=== PATIENT | male | born 1960 | race Caucasian/White ===

== ENCOUNTER 2020-12-14 01:56 | Inpatient (IN) | payer OTHER ==
[~2020-12-14] VITALS: Ht 172.7 cm; Wt 72.4 kg
[2020-12-14] MEDS ORDERED: METHYLPREDNISOLONE SOD SUCC 125 MG/2 ML VIAL IV STA (02:03)
[2020-12-14] MEDS ORDERED: ONDANSETRON HCL 4MG/2ML INJ IV STA (02:03)
[2020-12-14] MEDS ORDERED: IPRATROPIUM BROMIDE (0.02%) 0.5MG/2.5ML NEB HHN STA (02:03)
[2020-12-14 02:14] LABS: BG BASE EXCESS -13.3 mmol/L (-2.0-2.0); BG CARBOXYHEMOGLOBIN 1.1 % (0.5-1.5); BG DEOXYHEMOGLOBIN 10.8 % (0.0-5.0); BG FRACTION INSPIRED OXYGEN 40; BG HCO3 ACT 18.3 mmol/L (22.0-26.0); BG METHEMOGLOBIN 0.2 % (0.0-1.5); BG OXYGEN SATURATION 89.1 % (92.0-98.5); BG OXYHEMOGLOBIN 87.9 % (94.0-97.0); BG PCO2 69.9 mmHg (35.0-45.0); BG PH 7.036 (7.350-7.450); BG PO2 76.7 mmHg (75.0-100.0); BG SAMPLE SITE LEFT BRACHIAL; BG VENT MODE MASK - BIPAP
[2020-12-14] MEDS ORDERED: MAGNESIUM 2 G PREMIX 50 ML IV ONE (02:15)
[2020-12-14] MEDS ORDERED: SODIUM CHLORIDE 0.9% 1,000 ML IV ONE (02:15)
[2020-12-14] MEDS: ALBUTEROL (0.083%) 2.5MG/3ML NEB HHN SCH ×3 (02:20→03:26)
[2020-12-14 02:33] LABS: BASOPHILS % 1.1 % (0.0-2.0); EOSINOPHILS % 2.6 % (0.0-5.0); HEMATOCRIT. 40.4 % (42.0-52.0); HEMOGLOBIN. 13.3 g/dL (14.0-18.0); LYMPHOCYTES % 43.9 % (20.0-50.0); MEAN CORPUSCULAR HEMOGLOBIN 32.8 pg (28.0-32.0); MEAN CORPUSCULAR VOLUME 99.2 fL (80.0-94.0); MONOCYTES % 7.1 % (2.0-8.0); NEUTROPHILS % 45.3 % (40.0-76.0); PLATELET 299 x1000/uL (130-400); RED BLOOD CELL COUNT 4.07 mill/uL (4.7-6.1); RED CELL DISTRIBUTION WIDTH 14.8 % (11.6-14.6)
[2020-12-14 02:35] LABS: CHLORIDE 107 mEq/L (98-107)
[2020-12-14] MEDS ORDERED: CEFTRIAXONE 1 G PREMIX 50 ML IV ONE (02:45)
[2020-12-14] MEDS ORDERED: FUROSEMIDE 20MG/2ML VIAL IVP ONE (02:45)
[2020-12-14] MEDS ORDERED: AZITHROMYCIN 500 MG in DEXT 5% WATER 250 ML IV ONE (02:45)
[2020-12-14] MEDS ORDERED: NITROGLYCERIN 50MG PREMIX 250 ML IV ONE (03:30)
[2020-12-14] MEDS ORDERED: IPRATROPIUM/ALBUTEROL 0.5-3(2.5)MG/3ML NEB HHN PRN (06:30)
[2020-12-14] MEDS ORDERED: CLONIDINE 0.1MG TABLET PO PRN (06:30)
[2020-12-14] MEDS ORDERED: ONDANSETRON HCL 4MG/2ML INJ IV PRN (06:30)
[2020-12-14] MEDS ORDERED: GUAIFENESIN 200MG/10ML SUGAR FREE UDC PO PRN (06:30)
[2020-12-14] MEDS ORDERED: ACETAMINOPHEN 325MG TABLET PO PRN (06:30)
[2020-12-14] MEDS: AMLODIPINE 10MG TABLET PO SCH (08:30)
[2020-12-14] MEDS: ENOXAPARIN 40MG/0.4ML SYR SUBCUT SCH (08:30)
[2020-12-14] MEDS ORDERED: IOHEXOL-350 100 ML BOTTLE ONE (09:23)
[2020-12-14] MEDS: THIAMINE HCL 100MG TABLET PO SCH (09:34)
[2020-12-14] MEDS: MULTIVITAMINS,THER W-MINERALS TABLET PO SCH (10:15)
[2020-12-14] MEDS: NICOTINE 21MG PATCH TD SCH (10:15)
[2020-12-14] MEDS: FOLIC ACID 1MG TABLET PO SCH (10:16)
[2020-12-14 13:00] VITALS: BP 106/62
[2020-12-14] MEDS: METHYLPREDNISOLONE SOD SUCC 40 MG/ML VIAL IV SCH ×2 (14:20→21:43)
[2020-12-14 19:50] LABS: CREATINE KINASE MB FRACTION 2.5 ng/mL (0.5-3.6)
[2020-12-14 20:00] VITALS: BP 107/70
[2020-12-14 23:21] VITALS: BP 92/62
[2020-12-14 23:25] VITALS: BP 92/62
[2020-12-14 23:31] LABS: CREATINE KINASE MB FRACTION 2.3 ng/mL (0.5-3.6)
[2020-12-15] VITALS: BP 98/56
[2020-12-15 03:45] LABS: CLARITY URINE CLEAR (CLEAR); COLOR URINE YELLOW (YELLOW); KETONES URINE 1+ (NEGATIVE); LEUKOCYTE ESTERASE URINE NEGATIVE (NEGATIVE); NITRITE URINE NEGATIVE (NEGATIVE); OCCULT BLOOD URINE NEGATIVE (NEGATIVE); PROTEIN URINE NEGATIVE (NEGATIVE); SPECIFIC GRAVITY URINE 1.039 (1.005-1.030)
[2020-12-15 03:55] LABS: *AMPHETAMINES SCREEN URINE NEGATIVE (NEGATIVE); *BARBITURATES SCREEN URINE NEGATIVE (NEGATIVE); *BENZODIAZEPINES SCREEN URINE NEGATIVE (NEGATIVE); *COCAINE SCREEN URINE PRESUMTIVE POSITIVE (NEGATIVE); METHADONE URINE SCREEN NEGATIVE (NEGATIVE); OPIATES URINE SCREEN NEGATIVE (NEGATIVE); PHENCYCLIDINE URINE SCREEN NEGATIVE (NEGATIVE)
[2020-12-15 03:56] LABS: CANNABINOID URINE SCREEN PRESUMTIVE POSITIVE (NEGATIVE)
[2020-12-15 04:00] VITALS: BP 93/62
[2020-12-15] MEDS: CEFTRIAXONE 1,000 MG in DEXTROSE 5% WATER 50 ML IV SCH (05:06)
[2020-12-15] MEDS: METHYLPREDNISOLONE SOD SUCC 40 MG/ML VIAL IV SCH ×2 (05:48→18:42)
[2020-12-15] MEDS: AZITHROMYCIN 500 MG in DEXT 5% WATER 250 ML IV SCH (05:49)
[2020-12-15] MEDS ORDERED: CEFTRIAXONE 1 G PREMIX 50 ML IV SCH (06:00)
[2020-12-15] MEDS ORDERED: AZITHROMYCIN 500 MG in DEXT 5% WATER 250 ML IV SCH (06:30)
[2020-12-15 07:08] LABS: HEMATOCRIT. 33.8 % (42.0-52.0); HEMOGLOBIN. 11.3 g/dL (14.0-18.0); MEAN CORPUSCULAR HEMOGLOBIN 32.5 pg (28.0-32.0); MEAN CORPUSCULAR VOLUME 96.8 fL (80.0-94.0); MEAN PLATELET VOLUME 9.6 fl (7.4-10.4); PLATELET 267 x1000/uL (130-400); RED BLOOD CELL COUNT 3.49 mill/uL (4.7-6.1); RED CELL DISTRIBUTION WIDTH 14.3 % (11.6-14.6)
[2020-12-15 07:55] LABS: CHLORIDE 108 mEq/L (98-107)
[2020-12-15 08:00] VITALS: BP 95/56
[2020-12-15 08:04] LABS: LDL CHOLESTEROL 93 mg/dL (5-100)
[2020-12-15 08:05] LABS: HDL CHOLESTEROL 60 mg/dL (40-59)
[2020-12-15] MEDS: AMLODIPINE 10MG TABLET PO SCH (09:00)
[2020-12-15] MEDS: FOLIC ACID 1MG TABLET PO SCH (10:19)
[2020-12-15] MEDS: MULTIVITAMINS,THER W-MINERALS TABLET PO SCH (10:19)
[2020-12-15] MEDS: THIAMINE HCL 100MG TABLET PO SCH (10:19)
[2020-12-15] MEDS: NICOTINE 21MG PATCH TD SCH (10:20)
[2020-12-15] MEDS: ENOXAPARIN 40MG/0.4ML SYR SUBCUT SCH (10:20)
[2020-12-15 11:56] LABS: PLATELET ESTIMATE NORMAL
[2020-12-15 12:00] VITALS: BP 98/54
[2020-12-15 16:00] VITALS: BP 96/55
[2020-12-15] MEDS: LORAZEPAM 2MG/ML CPJ IV PRN (19:57)
[2020-12-15 20:00] VITALS: BP 173/117
[2020-12-15] MEDS: IPRATROPIUM/ALBUTEROL 0.5-3(2.5)MG/3ML NEB HHN SCH (20:06)
[2020-12-15 20:33] LABS: BG BASE EXCESS -3.8 mmol/L (-2.0-2.0); BG CARBOXYHEMOGLOBIN 0.4 % (0.5-1.5); BG DEOXYHEMOGLOBIN 8.9 % (0.0-5.0); BG FRACTION INSPIRED OXYGEN 100; BG HCO3 ACT 24.1 mmol/L (22.0-26.0); BG METHEMOGLOBIN 0.2 % (0.0-1.5); BG OXYHEMOGLOBIN 90.5 % (94.0-97.0); BG PCO2 54.9 mmHg (35.0-45.0); BG PO2 69.2 mmHg (75.0-100.0); BG SAMPLE SITE LEFT RADIAL; BG TOTAL HEMOGLOBIN 15.1 g/dL (12.0-18.0); BG VENT MODE MASK - NRB
[2020-12-16] VITALS (9 sets, daily range): BP systolic 85–112; BP diastolic 50–72
[2020-12-16] MEDS: IPRATROPIUM/ALBUTEROL 0.5-3(2.5)MG/3ML NEB HHN SCH ×4 (00:47→21:10)
[2020-12-16] MEDS: METHYLPREDNISOLONE SOD SUCC 40 MG/ML VIAL IV SCH (05:23)
[2020-12-16] MEDS: AZITHROMYCIN 500 MG in DEXT 5% WATER 250 ML IV SCH (05:24)
[2020-12-16] MEDS: CEFTRIAXONE 1,000 MG in DEXTROSE 5% WATER 50 ML IV SCH (05:24)
[2020-12-16] MEDS: THIAMINE HCL 100MG TABLET PO SCH (08:25)
[2020-12-16] MEDS: MULTIVITAMINS,THER W-MINERALS TABLET PO SCH (08:25)
[2020-12-16] MEDS: FOLIC ACID 1MG TABLET PO SCH (08:25)
[2020-12-16] MEDS: NICOTINE 21MG PATCH TD SCH (08:26)
[2020-12-16] MEDS: AMLODIPINE 10MG TABLET PO SCH (08:26)
[2020-12-16] MEDS: ENOXAPARIN 40MG/0.4ML SYR SUBCUT SCH (08:26)
[2020-12-16] MEDS: BUDESONIDE 0.5MG/2ML NEB HHN SCH (21:11)
[2020-12-16] MEDS: ZOLPIDEM TARTRATE 5MG TABLET PO PRN (23:57)
[2020-12-17] VITALS (56 sets, daily range): BP systolic 88–161; BP diastolic 48–104
[2020-12-17] MEDS: IPRATROPIUM/ALBUTEROL 0.5-3(2.5)MG/3ML NEB HHN SCH ×4 (02:06→20:43)
[2020-12-17] MEDS: CEFTRIAXONE 1,000 MG in DEXTROSE 5% WATER 50 ML IV SCH (04:53)
[2020-12-17] MEDS: AZITHROMYCIN 500 MG in DEXT 5% WATER 250 ML IV SCH (05:52)
[2020-12-17 07:28] LABS: BASOPHILS % 0.1 % (0.0-2.0); EOSINOPHILS % 0.4 % (0.0-5.0); HEMATOCRIT. 33.6 % (42.0-52.0); HEMOGLOBIN. 11.2 g/dL (14.0-18.0); LYMPHOCYTES % 15.1 % (20.0-50.0); MEAN CORPUSCULAR HEMOGLOBIN 32.7 pg (28.0-32.0); MEAN CORPUSCULAR VOLUME 97.9 fL (80.0-94.0); MEAN PLATELET VOLUME 9.6 fl (7.4-10.4); MONOCYTES % 7.3 % (2.0-8.0); NEUTROPHILS % 77.1 % (40.0-76.0); PLATELET 248 x1000/uL (130-400); RED BLOOD CELL COUNT 3.43 mill/uL (4.7-6.1); RED CELL DISTRIBUTION WIDTH 14.8 % (11.6-14.6)
[2020-12-17] MEDS: LORAZEPAM 2MG/ML CPJ IV PRN ×2 (07:28→18:46)
[2020-12-17 07:30] LABS: CHLORIDE 107 mEq/L (98-107)
[2020-12-17] MEDS: BUDESONIDE 0.5MG/2ML NEB HHN SCH ×2 (07:30→20:43)
[2020-12-17] MEDS ORDERED: METHYLPREDNISOLONE SOD SUCC 125 MG/2 ML VIAL IV ONE (07:45)
[2020-12-17] MEDS ORDERED: METHYLPREDNISOLONE SOD SUCC 40 MG/ML VIAL ONE (07:53)
[2020-12-17] MEDS ORDERED: METOPROLOL TARTRATE 5MG/5ML VIAL IV SCH (08:30)
[2020-12-17 08:54] LABS: BG BASE EXCESS -1.5 mmol/L (-2.0-2.0); BG CARBOXYHEMOGLOBIN 0.5 % (0.5-1.5); BG DEOXYHEMOGLOBIN 4.8 % (0.0-5.0); BG METHEMOGLOBIN 0.3 % (0.0-1.5); BG OXYGEN SATURATION 95.2 % (92.0-98.5); BG OXYHEMOGLOBIN 94.4 % (94.0-97.0); BG PCO2 68.7 mmHg (35.0-45.0); BG PH 7.228 (7.350-7.450); BG PO2 88.3 mmHg (75.0-100.0); BG SAMPLE SITE RIGHT RADIAL; BG TOTAL HEMOGLOBIN 15.1 g/dL (12.0-18.0); BG VENT MODE MASK - BIPAP
[2020-12-17] MEDS: AMLODIPINE 10MG TABLET PO SCH (09:00)
[2020-12-17] MEDS: THIAMINE HCL 100MG TABLET PO SCH (09:00)
[2020-12-17] MEDS ORDERED: PREDNISONE 20MG TABLET PO SCH (09:00)
[2020-12-17] MEDS ORDERED: FUROSEMIDE 40MG/4ML VIAL IVP SCH (09:00)
[2020-12-17] MEDS: MULTIVITAMINS,THER W-MINERALS TABLET PO SCH (09:00)
[2020-12-17] MEDS ORDERED: NICARDIPINE 50 MG in SODIUM CHLORIDE 0.9% 230 ML IV PRN (09:00)
[2020-12-17] MEDS: FOLIC ACID 1MG TABLET PO SCH (09:00)
[2020-12-17] MEDS ORDERED: LIDOCAINE HCL 1% 20ML VIAL (Pyxis) INJ ONE (09:44)
[2020-12-17] MEDS ORDERED: DEXT 5%/0.45% NACL 1000ML 1,000 ML IV SCH (10:15)
[2020-12-17] MEDS: ENOXAPARIN 40MG/0.4ML SYR SUBCUT SCH (10:26)
[2020-12-17] MEDS: NICOTINE 21MG PATCH TD SCH (10:27)
[2020-12-17 11:02] LABS: T4 FREE 0.97 ng/dL (0.76-1.46)
[2020-12-17] MEDS ORDERED: HYDRALAZINE 20MG/ML VIAL IV SCH (12:00)
[2020-12-17] MEDS: SILDENAFIL CITRATE 20MG TABLET PO SCH ×2 (14:42→21:01)
[2020-12-17] MEDS: METHYLPREDNISOLONE SOD SUCC 40 MG/ML VIAL IV SCH ×2 (14:42→21:01)
[2020-12-17] MEDS: LACTULOSE 20G/30ML UDC PO PRN (16:12)
[2020-12-17] MEDS ORDERED: NOREPINEPHRINE 8 MG in DEXT 5% WATER 242 ML IV PRN (17:15)
[2020-12-18] VITALS (64 sets, daily range): BP systolic 94–133; BP diastolic 52–93
[2020-12-18] MEDS: IPRATROPIUM/ALBUTEROL 0.5-3(2.5)MG/3ML NEB HHN SCH ×4 (02:08→20:52)
[2020-12-18] MEDS: SILDENAFIL CITRATE 20MG TABLET PO SCH ×3 (05:22→21:35)
[2020-12-18] MEDS: METHYLPREDNISOLONE SOD SUCC 40 MG/ML VIAL IV SCH ×3 (05:22→21:34)
[2020-12-18] MEDS: CEFTRIAXONE 1,000 MG in DEXTROSE 5% WATER 50 ML IV SCH (05:22)
[2020-12-18 05:38] LABS: HEMATOCRIT. 35.8 % (42.0-52.0); HEMOGLOBIN. 11.8 g/dL (14.0-18.0); MEAN CORPUSCULAR HEMOGLOBIN 32.1 pg (28.0-32.0); MEAN PLATELET VOLUME 9.6 fl (7.4-10.4); PLATELET 277 x1000/uL (130-400); RED BLOOD CELL COUNT 3.69 mill/uL (4.7-6.1); RED CELL DISTRIBUTION WIDTH 14.5 % (11.6-14.6)
[2020-12-18 05:44] LABS: CHLORIDE 105 mEq/L (98-107)
[2020-12-18] MEDS: AZITHROMYCIN 500 MG in DEXT 5% WATER 250 ML IV SCH (06:38)
[2020-12-18] MEDS: BUDESONIDE 0.5MG/2ML NEB HHN SCH (07:53)
[2020-12-18] MEDS: ENOXAPARIN 40MG/0.4ML SYR SUBCUT SCH (08:00)
[2020-12-18] MEDS: NICOTINE 21MG PATCH TD SCH (08:00)
[2020-12-18] MEDS: FOLIC ACID 1MG TABLET PO SCH (08:01)
[2020-12-18] MEDS: AMLODIPINE 10MG TABLET PO SCH (08:01)
[2020-12-18] MEDS: MULTIVITAMINS,THER W-MINERALS TABLET PO SCH (08:01)
[2020-12-18] MEDS: THIAMINE HCL 100MG TABLET PO SCH (08:01)
[2020-12-18 10:02] LABS: PLATELET ESTIMATE NORMAL
[2020-12-18] MEDS: LORAZEPAM 2MG/ML CPJ IV PRN ×2 (14:07→18:37)
[2020-12-18] MEDS: LACTULOSE 20G/30ML UDC PO PRN (15:58)
[2020-12-19] VITALS (31 sets, daily range): BP systolic 92–147; BP diastolic 50–80
[2020-12-19] MEDS: LORAZEPAM 2MG/ML CPJ IV PRN (03:02)
[2020-12-19] MEDS: IPRATROPIUM/ALBUTEROL 0.5-3(2.5)MG/3ML NEB HHN SCH ×4 (03:11→21:50)
[2020-12-19] MEDS: BUDESONIDE 0.5MG/2ML NEB HHN SCH ×2 (03:11→09:42)
[2020-12-19 05:43] LABS: HEMATOCRIT. 34.8 % (42.0-52.0); HEMOGLOBIN. 11.4 g/dL (14.0-18.0); MEAN CORPUSCULAR HEMOGLOBIN 31.7 pg (28.0-32.0); MEAN CORPUSCULAR VOLUME 96.6 fL (80.0-94.0); MEAN PLATELET VOLUME 9.9 fl (7.4-10.4); PLATELET 263 x1000/uL (130-400); RED CELL DISTRIBUTION WIDTH 14.3 % (11.6-14.6)
[2020-12-19 05:52] LABS: CHLORIDE 105 mEq/L (98-107)
[2020-12-19] MEDS: METHYLPREDNISOLONE SOD SUCC 40 MG/ML VIAL IV SCH (06:25)
[2020-12-19] MEDS: SILDENAFIL CITRATE 20MG TABLET PO SCH ×3 (06:25→22:00)
[2020-12-19 08:11] LABS: PLATELET ESTIMATE NORMAL
[2020-12-19 09:37] LABS: BG BASE EXCESS 2.9 mmol/L (-2.0-2.0); BG CARBOXYHEMOGLOBIN 0.3 % (0.5-1.5); BG DEOXYHEMOGLOBIN 3.5 % (0.0-5.0); BG FRACTION INSPIRED OXYGEN 24; BG HCO3 ACT 27.1 mmol/L (22.0-26.0); BG METHEMOGLOBIN 0.2 % (0.0-1.5); BG OXYGEN SATURATION 96.5 % (92.0-98.5); BG PH 7.448 (7.350-7.450); BG PO2 86.1 mmHg (75.0-100.0); BG SAMPLE SITE LEFT RADIAL; BG TOTAL HEMOGLOBIN 12.5 g/dL (12.0-18.0); BG VENT MODE NASAL CANNULA
[2020-12-19] MEDS: THIAMINE HCL 100MG TABLET PO SCH (09:48)
[2020-12-19] MEDS: NICOTINE 21MG PATCH TD SCH (09:48)
[2020-12-19] MEDS: MULTIVITAMINS,THER W-MINERALS TABLET PO SCH (09:49)
[2020-12-19] MEDS: FOLIC ACID 1MG TABLET PO SCH (09:49)
[2020-12-19] MEDS: AMLODIPINE 10MG TABLET PO SCH (09:49)
[2020-12-19] MEDS: ENOXAPARIN 40MG/0.4ML SYR SUBCUT SCH (09:50)
[2020-12-19] MEDS: CEFTRIAXONE 2 G in DEXTROSE 5% WATER 50 ML IV SCH (14:46)
[2020-12-19 19:56] LABS: PARTIAL THROMBOPLASTIN TIME 23.6 sec (23.4-31.0); PROTHROMBIN TIME 11.1 sec (9.6-11.0)
[2020-12-19] MEDS: ZOLPIDEM TARTRATE 5MG TABLET PO PRN (22:15)
[2020-12-20] VITALS (16 sets, daily range): BP systolic 93–117; BP diastolic 31–80
[2020-12-20] MEDS: IPRATROPIUM/ALBUTEROL 0.5-3(2.5)MG/3ML NEB HHN SCH ×3 (02:18→21:50)
[2020-12-20] MEDS: SILDENAFIL CITRATE 20MG TABLET PO SCH ×3 (06:00→23:05)
[2020-12-20 06:49] LABS: BASOPHILS % 0.2 % (0.0-2.0); EOSINOPHILS % 0.4 % (0.0-5.0); HEMATOCRIT. 31.1 % (42.0-52.0); HEMOGLOBIN. 10.8 g/dL (14.0-18.0); LYMPHOCYTES % 18.6 % (20.0-50.0); MEAN CORPUSCULAR HEMOGLOBIN 33.3 pg (28.0-32.0); MEAN CORPUSCULAR VOLUME 96.3 fL (80.0-94.0); MEAN PLATELET VOLUME 9.8 fl (7.4-10.4); NEUTROPHILS % 69.8 % (40.0-76.0); PLATELET 232 x1000/uL (130-400); RED BLOOD CELL COUNT 3.23 mill/uL (4.7-6.1); RED CELL DISTRIBUTION WIDTH 14.3 % (11.6-14.6)
[2020-12-20 06:55] LABS: CHLORIDE 106 mEq/L (98-107)
[2020-12-20 07:03] LABS: C REACTIVE PROTEIN QUANT 3.1 mg/L (0.0-3.0)
[2020-12-20] MEDS: THIAMINE HCL 100MG TABLET PO SCH (09:00)
[2020-12-20] MEDS: AMLODIPINE 10MG TABLET PO SCH (09:00)
[2020-12-20] MEDS: FOLIC ACID 1MG TABLET PO SCH (09:00)
[2020-12-20] MEDS: MULTIVITAMINS,THER W-MINERALS TABLET PO SCH (09:00)
[2020-12-20] MEDS: METHYLPREDNISOLONE SOD SUCC 40 MG/ML VIAL IV SCH (09:48)
[2020-12-20] MEDS: NICOTINE 21MG PATCH TD SCH (09:49)
[2020-12-20] MEDS ORDERED: FENTANYL CITRATE/PF 50MCG/ML 2ML VIAL ONE (13:38)
[2020-12-20] MEDS ORDERED: MIDAZOLAM HCL 2 MG/2 ML VIAL ONE (13:38)
[2020-12-20] MEDS ORDERED: TETRACAINE/BENZOCAINE/BUTAMBEN 20 GM SPRAY MM ONE (13:39)
[2020-12-20] MEDS ORDERED: LIDOCAINE HCL 2% JELLY 5ML ONE (13:39)
[2020-12-20] MEDS: CEFTRIAXONE 2 G in DEXTROSE 5% WATER 50 ML IV SCH (14:24)
[2020-12-20] MEDS: LORAZEPAM 2MG/ML CPJ IV PRN (16:07)
[2020-12-21] VITALS (15 sets, daily range): BP systolic 90–128; BP diastolic 44–86
[2020-12-21] MEDS: IPRATROPIUM/ALBUTEROL 0.5-3(2.5)MG/3ML NEB HHN SCH ×3 (01:16→13:43)
[2020-12-21] MEDS: LORAZEPAM 2MG/ML CPJ IV PRN (03:01)
[2020-12-21] MEDS: MULTIVITAMINS,THER W-MINERALS TABLET PO SCH (09:18)
[2020-12-21] MEDS: THIAMINE HCL 100MG TABLET PO SCH (09:18)
[2020-12-21] MEDS: FOLIC ACID 1MG TABLET PO SCH (09:18)
[2020-12-21] MEDS: ALPRAZOLAM 0.5 MG TABLET PO SCH ×2 (09:18→16:05)
[2020-12-21] MEDS: METHYLPREDNISOLONE SOD SUCC 40 MG/ML VIAL IV SCH (09:18)
[2020-12-21] MEDS: SILDENAFIL CITRATE 20MG TABLET PO SCH ×2 (09:18→14:00)
[2020-12-21] MEDS: AMLODIPINE 10MG TABLET PO SCH (09:18)
[2020-12-21] MEDS: NICOTINE 21MG PATCH TD SCH (09:19)
[2020-12-21 09:28] LABS: BG BASE EXCESS 3.4 mmol/L (-2.0-2.0); BG CARBOXYHEMOGLOBIN 0.3 % (0.5-1.5); BG DEOXYHEMOGLOBIN 6.4 % (0.0-5.0); BG FRACTION INSPIRED OXYGEN 21; BG HCO3 ACT 27.1 mmol/L (22.0-26.0); BG METHEMOGLOBIN 0.3 % (0.0-1.5); BG OXYGEN SATURATION 93.6 % (92.0-98.5); BG PCO2 38.1 mmHg (35.0-45.0); BG PO2 64.9 mmHg (75.0-100.0); BG SAMPLE SITE LEFT RADIAL; BG TOTAL HEMOGLOBIN 12.6 g/dL (12.0-18.0); BG VENT MODE ROOM AIR
[2020-12-21] MEDS: CEFTRIAXONE 2 G in DEXTROSE 5% WATER 50 ML IV SCH (15:07)
== END 2020-12-21 18:15 | disposition home or self-care (01) | DRG 871 ==
LOC: ER 01:56 → 7WST 03:56 → EDBEDREQSVC 07:42 → ENRESERV 11:23 → 8WST 23:52 → CVICU 12-17 08:23 → 3WST 12-19 07:58
PROVIDERS: ADMIT Hospitalist; ATTEND Hospitalist
PROC: 5A09357 Assistance with Respiratory Ventilation, Less than 24 Consecutive Hours, Continuous Positive Airway Pressure (ICD-10-PCS; principal; 2020-12-14)
PROC: 5A09357 Assistance with Respiratory Ventilation, Less than 24 Consecutive Hours, Continuous Positive Airway Pressure (ICD-10-PCS; 2020-12-17)
PROC: 02HV33Z Insertion of Infusion Device into Superior Vena Cava, Percutaneous Approach (ICD-10-PCS; 2020-12-17)
PROC: B548ZZA Ultrasonography of Superior Vena Cava, Guidance (ICD-10-PCS; 2020-12-17)
DX: A41.9 Sepsis, unspecified organism (principal); J96.01 Acute respiratory failure with hypoxia; I50.31 Acute diastolic (congestive) heart failure; J96.02 Acute respiratory failure with hypercapnia; J18.9 Pneumonia, unspecified organism; E87.2 Acidosis; J44.1 Chronic obstructive pulmonary disease with (acute) exacerbation; J44.0 Chronic obstructive pulmonary disease with (acute) lower respiratory infection; F10.10 Alcohol abuse, uncomplicated; F17.210 Nicotine dependence, cigarettes, uncomplicated; I11.0 Hypertensive heart disease with heart failure; F12.10 Cannabis abuse, uncomplicated; I27.21 Secondary pulmonary arterial hypertension; R73.9 Hyperglycemia, unspecified; I35.0 Nonrheumatic aortic (valve) stenosis; R65.20 Severe sepsis without septic shock; R74.01 Elevation of levels of liver transaminase levels; Z20.822 Contact with and (suspected) exposure to COVID-19; Z82.49 Family history of ischemic heart disease and other diseases of the circulatory system; Y92.89 Other specified places as the place of occurrence of the external cause; Z71.6 Tobacco abuse counseling; Z71.51 Drug abuse counseling and surveillance of drug abuser; I34.0 Nonrheumatic mitral (valve) insufficiency; F14.10 Cocaine abuse, uncomplicated
CPT/HCPCS: 36415; 36600; 71045; 71275; 76937; 78580; 80048; 80053; 80061; 80305; 81003; 82375; 82550; 82553; 82805; 82962; 83036; 83605; 83735; 83880; 84145; 84439; 84443; 84481; 84484; 85025; 85379; 85651; 86140; 93005; 93306; 93312; 93970; 94640; 94660; 99291; C1725; J0360; J0456; J0696; J1650; J1940; J2060; J2250; J2405; J2920; J2930; J3010; J3475; J3490; J7030; J7040; J7060; J7626; Q9967; U0003; A4315

== ENCOUNTER 2020-12-28 04:30 | Inpatient (IN) | payer OTHER ==
[2020-12-28] VITALS (10 sets, daily range): BP systolic 97–120; BP diastolic 52–78
[~2020-12-28] VITALS: Ht 172.7 cm; Wt 65.0 kg
[2020-12-28] MEDS ORDERED: ALBUTEROL (0.083%) 2.5MG/3ML NEB HHN STA (04:44)
[2020-12-28] MEDS ORDERED: IPRATROPIUM BROMIDE (0.02%) 0.5MG/2.5ML NEB HHN STA ×2 (04:44)
[2020-12-28] MEDS ORDERED: FUROSEMIDE 40MG/4ML VIAL IVP ONE (04:45)
[2020-12-28] MEDS ORDERED: METHYLPREDNISOLONE SOD SUCC 125 MG/2 ML VIAL IV ONE (05:00)
[2020-12-28] MEDS ORDERED: MAGNESIUM 2 G PREMIX 50 ML IV ONE (05:00)
[2020-12-28 05:11] LABS: BASOPHILS % 0.4 % (0.0-2.0); EOSINOPHILS % 1.8 % (0.0-5.0); HEMATOCRIT. 38.8 % (42.0-52.0); HEMOGLOBIN. 12.5 g/dL (14.0-18.0); MEAN CORPUSCULAR VOLUME 99.1 fL (80.0-94.0); MONOCYTES % 5.1 % (2.0-8.0); NEUTROPHILS % 70.7 % (40.0-76.0); PLATELET 289 x1000/uL (130-400); RED BLOOD CELL COUNT 3.91 mill/uL (4.7-6.1); RED CELL DISTRIBUTION WIDTH 15.4 % (11.6-14.6)
[2020-12-28 05:16] LABS: CHLORIDE 107 mEq/L (98-107)
[2020-12-28 05:19] LABS: ETHANOL BLOOD < 10 mg/dL
[2020-12-28 05:58] LABS: *BARBITURATES SCREEN URINE NEGATIVE (NEGATIVE); CANNABINOID URINE SCREEN PRESUMTIVE POSITIVE (NEGATIVE); PHENCYCLIDINE URINE SCREEN NEGATIVE (NEGATIVE)
[2020-12-28 05:59] LABS: *AMPHETAMINES SCREEN URINE NEGATIVE (NEGATIVE); *BENZODIAZEPINES SCREEN URINE NEGATIVE (NEGATIVE); *COCAINE SCREEN URINE NEGATIVE (NEGATIVE); METHADONE URINE SCREEN NEGATIVE (NEGATIVE); OPIATES URINE SCREEN NEGATIVE (NEGATIVE)
[2020-12-28 06:09] LABS: BG CARBOXYHEMOGLOBIN 0.4 % (0.5-1.5); BG DEOXYHEMOGLOBIN 0.5 % (0.0-5.0); BG FRACTION INSPIRED OXYGEN 100; BG HCO3 ACT 23.5 mmol/L (22.0-26.0); BG METHEMOGLOBIN 0.3 % (0.0-1.5); BG OXYGEN SATURATION 99.5 % (92.0-98.5); BG OXYHEMOGLOBIN 98.8 % (94.0-97.0); BG PCO2 38.5 mmHg (35.0-45.0); BG PH 7.403 (7.350-7.450); BG PO2 344.4 mmHg (75.0-100.0); BG SAMPLE SITE RIGHT RADIAL; BG TOTAL HEMOGLOBIN 12.4 g/dL (12.0-18.0); BG VENT MODE MASK - BIPAP
[2020-12-28] MEDS ORDERED: ONDANSETRON HCL 4MG/2ML INJ IV PRN (06:15)
[2020-12-28] MEDS ORDERED: CLONIDINE 0.1MG TABLET PO PRN (06:15)
[2020-12-28] MEDS ORDERED: ACETAMINOPHEN 325MG TABLET PO PRN (06:15)
[2020-12-28] MEDS ORDERED: MAGNESIUM/ALUMINUM HYDROXIDE/SIMETHICONE 30ML UDC PO PRN (06:15)
[2020-12-28] MEDS ORDERED: HYDROCODONE/ACETAMINOPHEN 5/325MG TABLET PO PRN (06:15)
[2020-12-28] MEDS ORDERED: IPRATROPIUM/ALBUTEROL 0.5-3(2.5)MG/3ML NEB HHN PRN (06:15)
[2020-12-28] MEDS: LEVOFLOXACIN 500MG PREMIX 100 ML IV SCH (07:02)
[2020-12-28] MEDS: IPRATROPIUM/ALBUTEROL 0.5-3(2.5)MG/3ML NEB HHN SCH ×3 (07:37→20:41)
[2020-12-28] MEDS: AMLODIPINE 10MG TABLET PO SCH (09:00)
[2020-12-28] MEDS ORDERED: METHYLPREDNISOLONE SOD SUCC 125 MG/2 ML VIAL IV SCH (12:00)
[2020-12-28] MEDS: ASPIRIN 81MG EC TABLET PO SCH (12:04)
[2020-12-28] MEDS: ENOXAPARIN 40MG/0.4ML SYR SUBCUT SCH (12:05)
[2020-12-28] MEDS: LORAZEPAM 2MG/ML CPJ IV PRN ×2 (12:46→20:44)
[2020-12-28] MEDS ORDERED: IPRA3AMP9 HHN (13:04)
[2020-12-28] MEDS: PREDNISONE 20MG TABLET PO SCH (19:32)
[2020-12-28] MEDS: BUDESONIDE 0.5MG/2ML NEB HHN SCH (20:41)
[2020-12-29] VITALS (10 sets, daily range): BP systolic 91–132; BP diastolic 59–83
[2020-12-29] MEDS: IPRATROPIUM/ALBUTEROL 0.5-3(2.5)MG/3ML NEB HHN SCH ×2 (01:32→09:15)
[2020-12-29] MEDS: LORAZEPAM 2MG/ML CPJ IV PRN ×2 (02:16→16:41)
[2020-12-29 05:25] LABS: CHLORIDE 107 mEq/L (98-107)
[2020-12-29 06:19] LABS: HEMATOCRIT. 28.9 % (42.0-52.0); HEMOGLOBIN. 9.6 g/dL (14.0-18.0); MEAN CORPUSCULAR HEMOGLOBIN 32.5 pg (28.0-32.0); MEAN CORPUSCULAR VOLUME 97.6 fL (80.0-94.0); MEAN PLATELET VOLUME 9.5 fl (7.4-10.4); PLATELET 199 x1000/uL (130-400); RED BLOOD CELL COUNT 2.96 mill/uL (4.7-6.1)
[2020-12-29] MEDS: LEVOFLOXACIN 500MG PREMIX 100 ML IV SCH (06:38)
[2020-12-29] MEDS: ENOXAPARIN 40MG/0.4ML SYR SUBCUT SCH (09:05)
[2020-12-29] MEDS: AMLODIPINE 10MG TABLET PO SCH (09:06)
[2020-12-29] MEDS: PREDNISONE 20MG TABLET PO SCH (09:06)
[2020-12-29] MEDS: ASPIRIN 81MG EC TABLET PO SCH (09:06)
[2020-12-29] MEDS: BUDESONIDE 0.5MG/2ML NEB HHN SCH (09:15)
[2020-12-29 10:32] LABS: PLATELET ESTIMATE NORMAL
[2020-12-29] MEDS ORDERED: IPRA3AMP9 NEB (17:31)
== END 2020-12-29 18:45 | disposition home or self-care (01) | DRG 189 ==
LOC: ER 04:49 → 5EST 05:52 → EDBEDREQ 06:02 → EDBEDREQTM 06:02 → ENRESERV 07:48
PROVIDERS: ADMIT Internal Medicine; ATTEND Internal Medicine
PROC: 5A09357 Assistance with Respiratory Ventilation, Less than 24 Consecutive Hours, Continuous Positive Airway Pressure (ICD-10-PCS; principal; 2020-12-28)
DX: J96.01 Acute respiratory failure with hypoxia (principal); I50.32 Chronic diastolic (congestive) heart failure; J43.9 Emphysema, unspecified; I35.0 Nonrheumatic aortic (valve) stenosis; G47.33 Obstructive sleep apnea (adult) (pediatric); I27.20 Pulmonary hypertension, unspecified; Z60.2 Problems related to living alone; R74.01 Elevation of levels of liver transaminase levels; I11.0 Hypertensive heart disease with heart failure; T38.0X5A Adverse effect of glucocorticoids and synthetic analogues, initial encounter; Z82.49 Family history of ischemic heart disease and other diseases of the circulatory system; Z87.891 Personal history of nicotine dependence; Y92.89 Other specified places as the place of occurrence of the external cause; Z71.51 Drug abuse counseling and surveillance of drug abuser; Z87.01 Personal history of pneumonia (recurrent); D72.829 Elevated white blood cell count, unspecified; F12.11 Cannabis abuse, in remission; F14.11 Cocaine abuse, in remission
CPT/HCPCS: 36415; 36600; 71045; 80053; 80305; 80320; 82375; 82805; 83880; 84484; 85025; 93005; 94640; 94644; 94660; 99291; J1650; J1940; J1956; J2060; J2930; J3475; J7512; J7626; G0480

== ENCOUNTER 2021-01-01 05:19 | Inpatient (IN) | payer OTHER ==
[~2021-01-01] VITALS: Ht 172.7 cm; Wt 79.0 kg
[~2021-01-01 05:19] MED LIST: IPRA3AMP9 NEB
[2021-01-01] MEDS ORDERED: IPRATROPIUM BROMIDE (0.02%) 0.5MG/2.5ML NEB HHN STA (05:30)
[2021-01-01] MEDS ORDERED: METHYLPREDNISOLONE SOD SUCC 125 MG/2 ML VIAL IV STA (05:30)
[2021-01-01] MEDS ORDERED: ALBUTEROL (0.083%) 2.5MG/3ML NEB HHN STA (05:30)
[2021-01-01 06:03] LABS: BASOPHILS % 0.3 % (0.0-2.0); EOSINOPHILS % 0.1 % (0.0-5.0); HEMATOCRIT. 38.2 % (42.0-52.0); HEMOGLOBIN. 12.2 g/dL (14.0-18.0); LYMPHOCYTES % 17.4 % (20.0-50.0); MEAN CORPUSCULAR HEMOGLOBIN 32.2 pg (28.0-32.0); MEAN CORPUSCULAR VOLUME 100.6 fL (80.0-94.0); MEAN PLATELET VOLUME 9.4 fl (7.4-10.4); MONOCYTES % 4.9 % (2.0-8.0); NEUTROPHILS % 77.3 % (40.0-76.0); PLATELET 232 x1000/uL (130-400)
[2021-01-01 06:05] LABS: CHLORIDE 103 mEq/L (98-107)
[2021-01-01] MEDS ORDERED: VANCOMYCIN 1 G PREMIX 200 ML IV SCH (06:15)
[2021-01-01] MEDS ORDERED: PIPERACILLIN/TAZOBACTAM 3.375GM/50ML PREMIX IV ONE (06:15)
[2021-01-01] MEDS ORDERED: SODIUM CHLORIDE 0.9% 500 ML IV ONE (06:15)
[2021-01-01 06:25] LABS: PARTIAL THROMBOPLASTIN TIME < 21.0 sec (23.4-31.0); PROTHROMBIN TIME 10.7 sec (9.6-11.0)
[2021-01-01] MEDS ORDERED: PIPERACILLIN/TAZ 3.375G PREMIX 50 ML IV SCH (06:30)
[2021-01-01 06:56] LABS: BG BASE EXCESS -2.6 mmol/L (-2.0-2.0); BG CARBOXYHEMOGLOBIN 0.3 % (0.5-1.5); BG DEOXYHEMOGLOBIN 0.6 % (0.0-5.0); BG FRACTION INSPIRED OXYGEN 100; BG HCO3 ACT 23.8 mmol/L (22.0-26.0); BG METHEMOGLOBIN 0.3 % (0.0-1.5); BG OXYGEN SATURATION 99.4 % (92.0-98.5); BG OXYHEMOGLOBIN 98.8 % (94.0-97.0); BG PCO2 47.4 mmHg (35.0-45.0); BG PH 7.318 (7.350-7.450); BG TOTAL HEMOGLOBIN 12.7 g/dL (12.0-18.0); BG TOTAL RESPIRATORY RATE 20 b/min; BG VENT MODE MASK - BIPAP
[2021-01-01] MEDS ORDERED: DIPHENHYDRAMINE 50MG/ML VIAL IV ONE (09:00)
[2021-01-01] MEDS ORDERED: ASPIRIN 81MG TABLET PO SCH (11:15)
[2021-01-01 12:24] LABS: CLARITY URINE CLEAR (CLEAR); COLOR URINE YELLOW (YELLOW); KETONES URINE NEGATIVE (NEGATIVE); LEUKOCYTE ESTERASE URINE NEGATIVE (NEGATIVE); NITRITE URINE NEGATIVE (NEGATIVE); OCCULT BLOOD URINE NEGATIVE (NEGATIVE); PH URINE 6.5 (4.5-8.0); PROTEIN URINE NEGATIVE (NEGATIVE); SPECIFIC GRAVITY URINE 1.012 (1.005-1.030); UROBILINOGEN URINE 0.2 E.U./dL (0.2-1.0)
[2021-01-01] MEDS ORDERED: LORAZEPAM 0.5MG TABLET PO ONE (14:45)
[2021-01-01] MEDS: ALPRAZOLAM 0.5 MG TABLET PO PRN (18:10)
[2021-01-01 20:10] VITALS: BP 110/75
[2021-01-01] MEDS ORDERED: IPRATROPIUM/ALBUTEROL 0.5-3(2.5)MG/3ML NEB NEB SCH (21:15)
[2021-01-01] MEDS ORDERED: ACETAMINOPHEN 325MG TABLET PO PRN (21:15)
[2021-01-01] MEDS ORDERED: ONDANSETRON HCL 4MG/2ML INJ IV PRN (21:15)
[2021-01-01] MEDS ORDERED: LORAZEPAM (22:42)
[2021-01-01] MEDS ORDERED: NICO-789 TP (22:42)
[2021-01-01] MEDS ORDERED: MED4 PO (22:42)
[2021-01-01] MEDS ORDERED: LEVO500T89 PO (22:42)
[2021-01-01] MEDS ORDERED: ALBUTEROL (22:42)
[2021-01-01] MEDS ORDERED: AMLO10TA80 PO (22:42)
[2021-01-01] MEDS ORDERED: FLUT1BLS3 IH (22:42)
[2021-01-01] MEDS: METHYLPREDNISOLONE SOD SUCC 40 MG/ML VIAL IV SCH (23:45)
[2021-01-01] MEDS: ENOXAPARIN 40MG/0.4ML SYR SUBCUT SCH (23:46)
[2021-01-02] LABS: CHLORIDE 106 mEq/L (98-107)
[2021-01-02 00:15] LABS: HEMATOCRIT. 29.3 % (42.0-52.0); MEAN CORPUSCULAR HEMOGLOBIN 33.1 pg (28.0-32.0); MEAN CORPUSCULAR VOLUME 96.7 fL (80.0-94.0); MEAN PLATELET VOLUME 9.3 fl (7.4-10.4); PLATELET 177 x1000/uL (130-400); RED BLOOD CELL COUNT 3.03 mill/uL (4.7-6.1); RED CELL DISTRIBUTION WIDTH 15.2 % (11.6-14.6)
[2021-01-02] MEDS: ALPRAZOLAM 0.5 MG TABLET PO PRN ×3 (00:18→17:49)
[2021-01-02 00:50] LABS: CREATINE KINASE MB FRACTION 1.6 ng/mL (0.5-3.6)
[2021-01-02 03:11] LABS: PLATELET ESTIMATE NORMAL
[2021-01-02] MEDS: IPRATROPIUM/ALBUTEROL 0.5-3(2.5)MG/3ML NEB HHN SCH ×6 (03:58→23:55)
[2021-01-02 04:00] VITALS: BP 109/79
[2021-01-02 06:02] LABS: HEMATOCRIT. 31.1 % (42.0-52.0); HEMOGLOBIN. 10.5 g/dL (14.0-18.0); MEAN CORPUSCULAR VOLUME 97.6 fL (80.0-94.0); MEAN PLATELET VOLUME 9.7 fl (7.4-10.4); PLATELET 176 x1000/uL (130-400); RED BLOOD CELL COUNT 3.19 mill/uL (4.7-6.1); RED CELL DISTRIBUTION WIDTH 15.2 % (11.6-14.6)
[2021-01-02] MEDS: METHYLPREDNISOLONE SOD SUCC 40 MG/ML VIAL IV SCH ×3 (06:07→17:49)
[2021-01-02 07:35] LABS: CHLORIDE 106 mEq/L (98-107)
[2021-01-02 07:46] LABS: CREATINE KINASE 36 IU/L (39-308)
[2021-01-02 07:48] LABS: CREATINE KINASE MB FRACTION 1.5 ng/mL (0.5-3.6)
[2021-01-02] MEDS ORDERED: IOHEXOL-350 100 ML BOTTLE ONE (12:06)
[2021-01-02 14:24] LABS: PLATELET ESTIMATE NORMAL
[2021-01-02 16:16] VITALS: BP 129/76
[2021-01-02 20:00] VITALS: BP 97/63
[2021-01-02] MEDS: ENOXAPARIN 40MG/0.4ML SYR SUBCUT SCH (22:51)
[2021-01-03] VITALS: BP 95/61
[2021-01-03] MEDS: CEFEPIME 1,000 MG in DEXTROSE 5% WATER 50 ML IV SCH ×2 (00:03→12:30)
[2021-01-03] MEDS: ALPRAZOLAM 0.5 MG TABLET PO PRN ×3 (00:04→12:46)
[2021-01-03] MEDS: METHYLPREDNISOLONE SOD SUCC 40 MG/ML VIAL IV SCH ×3 (00:04→12:30)
[2021-01-03 04:00] VITALS: BP 113/65
[2021-01-03] MEDS: IPRATROPIUM/ALBUTEROL 0.5-3(2.5)MG/3ML NEB HHN SCH ×4 (04:06→16:22)
[2021-01-03 06:24] LABS: HEMATOCRIT. 30.2 % (42.0-52.0); HEMOGLOBIN. 10.2 g/dL (14.0-18.0); MEAN CORPUSCULAR HEMOGLOBIN 33.1 pg (28.0-32.0); MEAN PLATELET VOLUME 9.7 fl (7.4-10.4); PLATELET 153 x1000/uL (130-400); RED BLOOD CELL COUNT 3.08 mill/uL (4.7-6.1); RED CELL DISTRIBUTION WIDTH 15.1 % (11.6-14.6)
[2021-01-03 06:30] LABS: CHLORIDE 104 mEq/L (98-107)
[2021-01-03 08:43] LABS: CANNABINOID URINE SCREEN PRESUMTIVE POSITIVE (NEGATIVE)
[2021-01-03 08:44] LABS: *AMPHETAMINES SCREEN URINE NEGATIVE (NEGATIVE); *BARBITURATES SCREEN URINE NEGATIVE (NEGATIVE); *BENZODIAZEPINES SCREEN URINE PRESUMTIVE POSITIVE (NEGATIVE); *COCAINE SCREEN URINE NEGATIVE (NEGATIVE); METHADONE URINE SCREEN NEGATIVE (NEGATIVE); OPIATES URINE SCREEN NEGATIVE (NEGATIVE)
[2021-01-03 08:45] LABS: PHENCYCLIDINE URINE SCREEN NEGATIVE (NEGATIVE)
[2021-01-03 11:03] VITALS: BP 116/68
[2021-01-03 13:58] LABS: NUCLEATED RED BLOOD CELLS 1 /100 WBC; PLATELET ESTIMATE NORMAL
== END 2021-01-03 17:56 | disposition home or self-care (01) | DRG 871 ==
LOC: ER 05:30 → 7WST 10:48 → EDBEDREQ 12:25 → ENRESERV 19:17 → 7WST 21:56 → 6WST 01-02 01:33
PROVIDERS: ADMIT Internal Medicine; ATTEND Internal Medicine
PROC: 5A09357 Assistance with Respiratory Ventilation, Less than 24 Consecutive Hours, Continuous Positive Airway Pressure (ICD-10-PCS; principal; 2021-01-01)
DX: A41.9 Sepsis, unspecified organism (principal); J96.01 Acute respiratory failure with hypoxia; J18.9 Pneumonia, unspecified organism; J44.0 Chronic obstructive pulmonary disease with (acute) lower respiratory infection; I50.32 Chronic diastolic (congestive) heart failure; J44.1 Chronic obstructive pulmonary disease with (acute) exacerbation; E87.2 Acidosis; I27.21 Secondary pulmonary arterial hypertension; F14.10 Cocaine abuse, uncomplicated; R65.20 Severe sepsis without septic shock; I34.0 Nonrheumatic mitral (valve) insufficiency; Z20.822 Contact with and (suspected) exposure to COVID-19; J98.01 Acute bronchospasm; I27.20 Pulmonary hypertension, unspecified; R74.01 Elevation of levels of liver transaminase levels; F10.10 Alcohol abuse, uncomplicated; J84.10 Pulmonary fibrosis, unspecified; Z82.49 Family history of ischemic heart disease and other diseases of the circulatory system; Z87.891 Personal history of nicotine dependence; Z79.899 Other long term (current) drug therapy; Z71.51 Drug abuse counseling and surveillance of drug abuser; I35.0 Nonrheumatic aortic (valve) stenosis
CPT/HCPCS: 36415; 36600; 71045; 71275; 80048; 80053; 80305; 81003; 82375; 82550; 82553; 82805; 83605; 83735; 83880; 84145; 84484; 85025; 93005; 93970; 94640; 94660; 99291; J0692; J1200; J1650; J2543; J2920; J2930; J3370; J7040; J7060; Q9967; U0003